=== PATIENT | female | born 1965 | race Caucasian/White ===

== ENCOUNTER → 2019-09-10 | Outpatient (CLI) | payer OTHER ==
[~2019-09-10] MED LIST: ESTRADIOL 1 MG T1 M1 PO; MAXZIDE-25 MG1 EACH PO; NEXIUM40 MG PO; SYNTHROID112 MC1 PO; VENLAFAXINE HCL75 M1 PO
== END ==
LOC: NUC 10:09
DX: K21.9 Gastro-esophageal reflux disease without esophagitis (principal); K31.84 Gastroparesis; R05 Cough